=== PATIENT | female | born 1970 | race Caucasian/White ===

== ENCOUNTER 2017-02-16 07:44 | Emergency (ER) | payer BC ==
[2017-02-16 07:56] VITALS: BP 92/56
--- NOTE | 2017-02-16 08:30 | UC ---
Skin Complaint HPI - HPI Summary HPI Summary: Patient is an otherwise healthy 46yo presenting with diffuse hives x2 days. She began to double the dose of her spironolactone on . Thursday morning she awoke with erythematous raised pruritic areas to the left side of the face and neck. Thursday morning she awoke with swelling of the lips and right eye with more diffuse hives to the lower extremities and face. She denies soaps or detergent changes. She denies environmental changes or other allergies to foods. She has tried benadryl without relief. Denies visual disturbances, dysphagia, chest pain or SOB. - History of Current Complaint Chief Complaint: UCAllergicReaction Time Seen by Provider: 02/16/17 08:07 Stated Complaint: HIVES Hx Obtained From: Patient ?: No Onset/Duration: Gradual Onset Skin Exposure Onset/Duration: Days Ago Timing: Constant Onset Severity: Moderate Current Severity: Moderate Pain Intensity: 2 Pain Scale Used: 0-10 Numeric Location: Diffuse Character: Pruritus, Hives, Redness, Raised Aggravating: Nothing Alleviating: Nothing Associated Signs & Symptoms: Positive: Negative - Allergy/Home Medications Allergies/Adverse Reactions: Allergies Allergy/AdvReac Type Severity Reaction Status Date / Time No Known Allergies Allergy Verified 12/24/12 18:58 Home Medications: Home Medications Spironolactone TAB* [Aldactone TAB*] 25 mg PO DAILY 02/16/17 [History Confirmed 02/16/17] Review of Systems Constitutional: Negative Skin: Rash Eyes: Negative Respiratory: Negative Cardiovascular: Negative Neurovascular: Negative Musculoskeletal: Negative Neurological: Negative Psychological: Negative All Other Systems Reviewed And Are Negative: Yes PMH/Surg Hx/FS Hx/Imm Hx - Surgical History Surgical History: Yes Surgery Procedure, Year, and Place: - Social History Alcohol Use: None Substance Use Type: None Smoking Status (MU): Never Smoked Tobacco Physical Exam Triage Information Reviewed: Yes Appearance: Well-Appearing, No Pain Distress Vital Signs: Initial Vital Signs Temp 99.2 F 02/16/17 07:52 Pulse 98 02/16/17 07:52 Resp 18 02/16/17 07:52 BP 92/56 02/16/17 07:52 Pulse Ox 100 02/16/17 07:52 Vital Signs Reviewed: Yes Eye Exam: Normal ENT Exam: Normal ENT: Positive: Pharynx normal Dental Exam: Normal Neck exam: Normal Neck: Positive: Supple, No Lymphadenopathy Respiratory Exam: Normal Respiratory: Positive: Chest non-tender Cardiovascular Exam: Normal Cardiovascular: Positive: RRR Neurological Exam: Normal Neurological: Positive: Muscle Tone Normal Psychological: Positive: Normal Response To Family, Age Appropriate Behavior Skin: Positive: rashes - diffuse hives Course/Dx - Course Course Of Treatment: Patient presents to with diffuse hives after increasing the dose of spironolactone. She is advised to discontinue the medication and rx for atarax, prednisone, and triamcinalone. She is to follow up with dermatology pablo. - Differential Diagnoses - Skin Complaint Differential Diagnoses: Drug Rash, Drug Intoxication - Diagnoses Provider Diagnoses: Urticaria Discharge - Discharge Plan Condition: Stable Disposition: HOME Prescriptions: Triamcinolone 0.5% CREAM(NF) [Triamcinolone 0.5% CREAM*] 1 applic TOPICAL TID # 1 tube hydrOXYzine HCL TAB* [Atarax TAB 50 MG *] 50 mg PO TID PRN #15 tab PRN Reason: Itching predniSONE TAB* [Deltasone TAB*] 50 mg PO DAILY #5 tab MDD 1 Patient Education Materials: Prednisone (By mouth), Urticaria (ED) Referrals: Mert Nicholson MD [Primary Care Provider] - Additional Instructions: FOLLOW UP WITH YOUR DEVELOPMENTAL BEHAVIORAL PHYSICIAN SOON POSSIBLE USE THE MEDICATIONS PRESCRIBED TO YOU. TAKE THE PREDNISONE IN THE MORNING TAKE HYDROXYZINE UP TO THREE TIMES DAILY FOR ITCHING DISCONTINUE THE USE OF SPIRONOLACTONE TRIMACINALONE CREAM TOPICALLY ONLY TO THE AREAS WHICH ARE ITCHING. RETURN IF SYMPTOMS BECOME WORSE OR YOU DEVELOP DIFFICULTY BREATHING.
== END 2017-02-16 08:48 | disposition home or self-care (01) ==
LOC: UCEAST 07:44
DX: L50.9 Urticaria, unspecified (principal)
CPT/HCPCS: 99212; G0463

== ENCOUNTER 2019-03-18 15:05 | Emergency (ER) | payer BC ==
--- OUTSIDE RECORDS SUMMARY | 2019-03-18 15:11 | XMS REPORT | Continuity of Care Document ---
:1970 External Reference #:[id number] Author Name Telly Pate M.D. Address [address] [place] [address] Care Team Providers Name Role Phone Brice Rutledge M.D. Care Team Information Sales Operations Director Unavailable [facility] Primary Care Physician Unavailable Payers Date Identification Numbers Payment Provider Subscriber Effective: Policy Number: [id number] [facility] Zeus Sanchez 2015 Group Number: [id number] [address] Group Name: [place] [address] PayID: [id number] Effective: 2000 Policy Number: [id number] [facility] Mook Sanchez Expires: 2012 PayID: [id number] [address] [facility] [employer] [place] [address] Effective: 2012 Policy Number: [id number] [facility] Zeus Sanchez Expires: 2015 Group Number: [id number] [address] PayID: [id number] [place] [address] Problems Active Problems Provider Date Contact dermatitis Telly Pate M.D. Onset: 01/28/2019 Social History Type Date Description Comments Sex Unknown Tobacco Use Start: Unknown Patient has never smoked Allergies, Adverse Reactions, Alerts Description No Known Drug Allergies Medications Active Medications SIG Qnty Indications Ordering Provider Date Clarinex Jes, 5mg Tablets Sharan Nolan Spironolactone Take One Tablet Unknown 25mg Tablets By Mouth Every Day Medications Administered in Office Medication SIG Qnty Indications Ordering Provider Date Injection Allergy Injection 02/14/2019 Injection Injection Allergy Injection 01/17/2019 Injection Injection Allergy Injection 12/20/2018 Injection Injection Allergy Injection 11/22/2018 Injection Injection Allergy Injection 10/25/2018 Injection Injection Allergy Injection 09/20/2018 Injection Injection Allergy Injection 09/13/2018 Injection Injection Allergy Injection 08/09/2018 Injection Injection Allergy Injection 07/26/2018 Injection Injection Allergy Injection 06/28/2018 Injection Injection Allergy Injection 05/31/2018 Injection Injection Allergy Injection 05/03/2018 Injection Injection Allergy Injection 04/05/2018 Injection Injection Allergy Injection 03/08/2018 Injection Injection Allergy Injection 02/08/2018 Injection Injection Telly Pate M.D. 02/03/2018 Injection Injection Allergy Injection 02/03/2018 Injection Injection Telly Pate M.D. 01/25/2018 Injection Injection Allergy Injection 01/25/2018 Injection Injection Allergy Injection 12/28/2017 Injection Injection Allergy Injection 11/23/2017 Injection Injection Allergy Injection 10/26/2017 Injection Injection Allergy Injection 09/28/2017 Injection Injection Allergy Injection 09/02/2017 Injection Injection Allergy Injection 08/03/2017 Injection Injection Allergy Injection 07/06/2017 Injection Injection Allergy Injection 06/22/2017 Injection Injection Allergy Injection 06/08/2017 Injection Injection Allergy Injection 05/25/2017 Injection Injection Allergy Injection 05/04/2017 Injection Injection Allergy Injection 04/27/2017 Injection Injection Allergy Injection 04/13/2017 Injection Injection Allergy Injection 03/23/2017 Injection Injection Allergy Injection 02/09/2017 Injection Injection Allergy Injection 01/26/2017 Injection Injection Allergy Injection 12/29/2016 Injection Injection Telly Pate M.D. 12/22/2016 Injection Injection Allergy Injection 12/22/2016 Injection Injection Allergy Injection 12/01/2016 Injection Injection Allergy Injection 11/10/2016 Injection Injection Allergy Injection 10/15/2016 Injection Injection Allergy Injection 09/22/2016 Injection Injection Allergy Injection 08/04/2016 Injection Injection Allergy Injection 06/30/2016 Injection Injection Allergy Injection 06/02/2016 Injection Injection Allergy Injection 05/19/2016 Injection Injection Allergy Injection 04/28/2016 Injection Injection Allergy Injection 04/14/2016 Injection Injection Allergy Injection 03/17/2016 Injection Injection Allergy Injection 02/25/2016 Injection Injection Allergy Injection 02/11/2016 Injection Injection Allergy Injection 01/21/2016 Injection Injection Allergy Injection 01/07/2016 Injection Injection Allergy Injection 12/24/2015 Injection Injection Allergy Injection 12/10/2015 Injection Injection Allergy Injection 11/12/2015 Injection Injection Allergy Injection 10/15/2015 Injection Injection Allergy Injection 09/17/2015 Injection Injection Allergy Injection 08/20/2015 Injection Injection Allergy Injection 07/23/2015 Injection Injection Allergy Injection 07/02/2015 Injection Injection Allergy Injection 06/11/2015 Injection Injection Allergy Injection 05/21/2015 Injection Injection Allergy Injection 05/07/2015 Injection Injection Allergy Injection 04/23/2015 Injection Injection Allergy Injection 04/09/2015 Injection Injection Allergy Injection 03/26/2015 Injection Injection Allergy Injection 03/12/2015 Injection Injection Allergy Injection 02/26/2015 Injection Injection Allergy Injection 02/12/2015 Injection Injection Allergy Injection 01/22/2015 Injection Injection Allergy Injection 01/08/2015 Injection Injection Allergy Injection 12/25/2014 Injection Injection Allergy Injection 12/11/2014 Injection Injection Allergy Injection 11/13/2014 Injection Injection Allergy Injection 10/16/2014 Injection Injection Allergy Injection 09/18/2014 Injection Injection Allergy Injection 08/21/2014 Injection Injection Allergy Injection 07/24/2014 Injection Injection Allergy Injection 06/26/2014 Injection Injection Allergy Injection 06/12/2014 Injection Injection Allergy Injection 05/15/2014 Injection Injection Allergy Injection 04/24/2014 Injection Injection Allergy Injection 04/03/2014 Injection Injection Allergy Injection 03/13/2014 Injection Injection Allergy Injection 02/20/2014 Injection Injection Allergy Injection 02/06/2014 Injection Injection Allergy Injection 12/19/2013 Injection Injection Allergy Injection 11/28/2013 Injection Injection Allergy Injection 10/31/2013 Injection Injection Allergy Injection 10/03/2013 Injection Injection Allergy Injection 09/05/2013 Injection Injection Allergy Injection 08/08/2013 Injection Injection Allergy Injection 07/25/2013 Injection Injection Allergy Injection 06/27/2013 Injection Injection Allergy Injection 06/13/2013 Injection Injection Allergy Injection 05/30/2013 Injection Injection Allergy Injection 05/16/2013 Injection Injection Allergy Injection 05/02/2013 Injection Injection Allergy Injection 04/18/2013 Injection Injection Allergy Injection 03/21/2013 Injection Injection Allergy Injection 03/07/2013 Injection Injection Allergy Injection 02/07/2013 Injection Injection Allergy Injection 01/17/2013 Injection Injection Allergy Injection 01/03/2013 Injection Injection Allergy Injection 12/20/2012 Injection Injection Allergy Injection 12/06/2012 Injection Injection Ovidio Andre M.D. 11/08/2012 Injection Injection Ovidio Jes, M.DTony 11/01/2012 Injection Injection Ovidio Jes, M.DTony 09/20/2012 Injection Injection Ovidio Jes, M.D. 08/16/2012 Injection Injection Ovidio Jes, M.D. 07/05/2012 Injection Injection Ovidio Jes, M.D. 06/21/2012 Injection Injection Ovidio Jes, M.D. 06/07/2012 Injection Injection Ovidio Jes, M.DTony 05/17/2012 Injection Injection Ovidio Jes, M.DTony 04/26/2012 Injection Injection Ovidio Jes, M.DTony 04/12/2012 Injection Injection Ovidio Jes, M.DTony 03/29/2012 Injection Injection Ovidio Jes, M.DTony 03/15/2012 Injection Injection Ovidio Jes, M.DTony 03/08/2012 Injection Injection Ovidio Jes, M.DTony 02/16/2012 Injection Injection Ovidio Jes, M.DTony 01/26/2012 Injection Injection Ovidio Jes, M.DTony 01/19/2012 Injection Injection Ovidio Jes, M.DTony 01/05/2012 Injection Injection Ovidio Jes, M.DTony 12/22/2011 Injection Injection Ovidio Jes, M.DTony 12/08/2011 Injection Injection Ovidio Jes, M.DTony 11/24/2011 Injection Injection Ovidio Jes, M.DTony 10/27/2011 Injection Injection Terri Steinberg M.D. 10/03/2011 Injection Injection Ovidio Jes, M.DTony 09/05/2011 Injection Injection Ovidio Jes, M.DTony 07/11/2011 Injection Injection Ovidio Jes, M.DTony 06/06/2011 Injection Injection Ovidio Jes, M.DTony 05/09/2011 Injection Injection Ovidio Jes, M.DTony 04/11/2011 Injection Injection CONTRERAS Best 02/21/2011 Injection Injection Ovidio Jes, MTonyDTony 01/24/2011 Injection Injection Ovidio Jes, M.DTony 01/03/2011 Injection Injection Rodolfo Simons M.D. 12/13/2010 Injection Injection Rodolfo Simons M.D. 11/15/2010 Injection Injection Rodolfo Simons M.D. 10/11/2010 Injection Injection Rodolfo Simons M.D. 09/20/2010 Injection Injection Rodolfo Simons M.D. 08/16/2010 Injection Injection Rodolfo Simons M.D. 07/26/2010 Injection Injection Rodolfo Simons M.D. 06/28/2010 Injection Injection Rodolfo Simosn M.D. 06/14/2010 Injection Injection Rodolfo Simons M.D. 05/31/2010 Injection Injection Rodolfo Simons M.D. 05/17/2010 Injection Injection Rodolfo Simons M.D. 05/03/2010 Injection Injection Rodolfo Simons M.D. 04/01/2010 Injection Injection Rodolfo Simons M.D. 03/01/2010 Injection Injection Rodolfo Simons M.D. 02/15/2010 Injection Injection Rodolfo Simons M.D. 01/18/2010 Injection Injection Rodolfo Simons M.D. 01/04/2010 Injection Injection Rodolfo Simons M.D. 12/14/2009 Injection Injection Rodolfo Simons M.D. 11/16/2009 Injection Injection Rodolfo Simons M.D. 10/19/2009 Injection Injection Rodolfo Simons M.D. 09/21/2009 Injection Injection Rodolfo Simons M.D. 08/24/2009 Injection Injection Rodolfo Simons M.D. 07/13/2009 Injection Injection Rodolfo Simons M.D. 06/22/2009 Injection Injection Rodolfo Simons M.D. 06/08/2009 Injection Injection Rodolfo Simons M.D. 05/11/2009 Injection Injection Rodolfo Simons M.D. 04/27/2009 Injection Injection Rodolfo Simons M.D. 04/13/2009 Injection Injection Rodolfo Simons M.D. 03/21/2009 Injection Injection Rodolfo Simons M.D. 03/02/2009 Injection Injection Rodolfo Simons M.D. 02/16/2009 Injection Injection Rodolfo Simons M.D. 01/19/2009 Injection Injection Rodolfo Simnos M.D. 01/05/2009 Injection Injection Rodolfo Simons M.D. 12/22/2008 Injection Injection Rodolfo Simons M.D. 12/08/2008 Injection Injection Rodolfo Simons M.D. 11/17/2008 Injection Injection Rodolfo Simons M.D. 10/27/2008 Injection Injection Rodolfo Simons M.D. 09/22/2008 Injection Injection Rodolfo Simons M.D. 08/11/2008 Injection Injection Rodolfo Simons M.D. 07/07/2008 Injection Injection Rodolfo Simons M.D. 06/23/2008 Injection Injection Rodolfo Simons M.D. 06/09/2008 Injection Injection Rodolfo Simons M.D. 05/26/2008 Injection Injection Rodolfo Simons M.D. 05/12/2008 Injection Injection Rodolfo Simons M.D. 04/07/2008 Injection Injection Rodolfo Simons M.D. 03/24/2008 Injection Injection Rodolfo Simons M.D. 02/11/2008 Injection Injection Rodolfo Simons M.D. 01/28/2008 Injection Injection Rodolfo Simons M.D. 01/14/2008 Injection Injection Rodolfo Simons M.D. 12/31/2007 Injection Injection Rodolfo Simons M.D. 12/17/2007 Injection Injection Rodolfo Simons M.D. 12/03/2007 Injection Injection Rodolfo Simons M.D. 11/05/2007 Injection Injection Rodolfo Simons M.D. 10/08/2007 Injection Injection Rodolfo Simons M.D. 09/10/2007 Injection Injection Rodolfo Simons M.D. 08/06/2007 Injection Injection Rodolfo Simons M.D. 07/16/2007 Injection Injection Rodolfo Simons M.D. 06/18/2007 Injection Injection Rodolfo Simons M.D. 05/28/2007 Injection Injection Rodoflo Simons M.D. 05/14/2007 Injection Injection Rodolfo Simons M.D. 04/30/2007 Injection Injection Rodolfo Simons M.D. 04/16/2007 Injection Injection Rodolfo Simons M.D. 03/19/2007 Injection Injection Rodolfo Simons M.D. 03/05/2007 Injection Injection Rodolfo Simons M.D. 02/19/2007 Injection Injection Rodolfo Simons M.D. 02/05/2007 Injection Injection Rodolfo Simons M.D. 01/22/2007 Injection Injection Rodolfo Simons M.D. 01/08/2007 Injection Injection Rodolfo Simons M.D. 12/25/2006 Injection Injection Rodolfo Simons M.D. 12/09/2006 Injection Injection Rodolfo Simons M.D. 11/27/2006 Injection Injection Rodolfo Simons M.D. 10/30/2006 Injection Injection Rodolfo Simons M.D. 10/02/2006 Injection Injection Rodolfo Simons M.D. 08/28/2006 Injection Injection Rodolfo Simons M.D. 08/07/2006 Injection Injection Rodolfo Simons M.D. 07/24/2006 Injection Injection Rodolfo Simons M.D. 06/26/2006 Injection Injection Rodolfo Simons M.D. 06/12/2006 Injection Injection Rodolfo Simons M.D. 05/29/2006 Injection Injection Rodolfo Simons M.D. 05/15/2006 Injection Injection Rodolfo Simons M.D. 05/01/2006 Injection Injection Rodolfo Simons M.D. 04/17/2006 Injection Injection Rodolfo Simons M.D. 04/03/2006 Injection Injection Rodolfo Simons M.D. 03/13/2006 Injection Injection Rodolfo Simons M.D. 02/20/2006 Injection Injection Rodolfo Simons M.D. 02/06/2006 Injection Injection Rodolfo Simons M.D. 01/23/2006 Injection Injection Rodolfo Simons M.D. 12/26/2005 Injection Injection Rodolfo Simons M.D. 11/28/2005 Injection Injection Rodolfo Simons M.D. 11/14/2005 Injection Injection Rodolfo Simons M.D. 10/31/2005 Injection Injection Rodolfo Simons M.D. 10/24/2005 Injection Injection Rodolfo Simons M.D. 10/17/2005 Injection Injection Rodolfo Simons M.D. 09/19/2005 Injection Injection Rodolfo Simons M.D. 08/22/2005 Injection Injection Rodolfo Simons M.D. 08/08/2005 Injection Injection Rodolfo Simons M.D. 07/25/2005 Injection Injection Rodolfo Simons M.D. 07/11/2005 Injection Injection Rodolfo Simons M.D. 06/13/2005 Injection Injection Rodolfo Simons M.D. 05/23/2005 Injection Injection Rodolfo Simons M.D. 05/02/2005 Injection Injection Rodolfo Simons M.D. 04/04/2005 Injection Injection Rodolfo Simons M.D. 03/07/2005 Injection Injection Rodolfo Simons M.D. 02/14/2005 Injection Injection Rodolfo Simons M.D. 01/24/2005 Injection Injection Rodolfo Simons M.D. 12/27/2004 Injection Injection Rodolfo Simons M.D. 12/06/2004 Injection Injection Rodolfo Simons M.D. 11/08/2004 Injection Injection Rodolfo Simons M.D. 10/11/2004 Injection Injection Rodolfo Simons M.D. 09/13/2004 Injection Injection Rodolfo Simons M.D. 09/02/2004 Injection Injection Rodolfo Simons M.D. 08/16/2004 Injection Injection Rodolfo Simons M.D. 08/09/2004 Injection Injection Rodolfo Simons M.D. 07/15/2004 Injection Injection Rodolfo Simons M.D. 05/24/2004 Injection Injection Rodolfo Simons M.D. 05/06/2004 Injection Injection Rodolfo Simons M.D. 04/22/2004 Injection Injection Rodolfo Simons M.D. 03/20/2004 Injection Injection Rodolfo Simons M.D. 02/21/2004 Injection Injection Rodolfo Simons M.D. 02/07/2004 Injection Injection Rodlofo Simons M.D. 01/24/2004 Injection Injection Rodolfo Simons M.D. 01/10/2004 Injection Injection Rodolfo Simons M.D. 12/27/2003 Injection Injection Rodolfo Simons M.D. 11/29/2003 Injection Injection Rodolfo Simons M.D. 11/01/2003 Injection Injection Rodolfo Simons M.D. 09/25/2003 Injection Injection Rodolfo Simons M.D. 08/28/2003 Injection Injection Rodolfo Simons M.D. 08/02/2003 Injection Injection Rodolfo Simons M.D. 07/05/2003 Injection Injection Rodolfo Simons M.D. 06/21/2003 Injection Injection Rodolfo Simons M.D. 06/05/2003 Injection Injection Rodolfo Simons M.D. 05/17/2003 Injection Injection Rodolfo Simons M.D. 05/03/2003 Injection Injection Rodolfo Simons M.D. 04/12/2003 Injection Injection Rodolfo Simons M.D. 03/29/2003 Injection Vital Signs Date Vital Result Comment 02/21/2019 5:03pm Height 61 inches 5'1" Weight 119.00 lb Weight 53.978 kg Respiratory Rate 18 /min Heart Rate 75 /min O2 % BldC Oximetry 98 % BP Systolic 125 mmHg BP Diastolic 80 mmHg BMI (Body Mass Index) 22.5 kg/m2 01/28/2019 8:55am Height 61 inches 5'1" Weight 119.00 lb Weight 53.978 kg Respiratory Rate 20 /min Heart Rate 103 /min O2 % BldC Oximetry 97 % BP Systolic 107 mmHg BP Diastolic 79 mmHg BMI (Body Mass Index) 22.5 kg/m2 03/21/2013 4:47pm Height 61 inches 5'1" Weight 130.00 lb Weight 58.968 kg Respiratory Rate 16 /min Heart Rate 74 /min O2 % BldC Oximetry 98 % BP Systolic 118 mmHg BP Diastolic 78 mmHg BMI (Body Mass Index) 24.6 kg/m2 Procedures Date Code Description Status 02/14/2019 72017 Injection Completed 01/17/2019 80057 Injection Completed 12/20/2018 42953 Injection Completed 11/22/2018 34307 Injection Completed 10/25/2018 98985 Injection Completed 09/20/2018 09710 Extract 1-10 Completed 09/20/2018 10056 Injection Completed 09/13/2018 74529 Injection Completed 08/09/2018 78933 Injection Completed 07/26/2018 03013 Injection Completed 06/28/2018 35297 Injection Completed 05/31/2018 57826 Injection Completed 05/03/2018 72292 Injection Completed 04/05/2018 27823 Injection Completed 03/08/2018 69540 Injection Completed 02/08/2018 31604 Injection Completed 02/03/2018 35581 Injection Completed 02/03/2018 94474 Injection Completed 02/03/2018 74374 Extract 1-10 Completed 01/25/2018 62376 Injection Completed 01/25/2018 10303 Injection Completed 12/28/2017 74666 Injection Completed 11/23/2017 48703 Injection Completed 10/26/2017 43414 Injection Completed 09/28/2017 29764 Injection Completed 09/02/2017 96189 Injection Completed 08/03/2017 06543 Injection Completed 07/06/2017 71871 Injection Completed 06/22/2017 77231 Injection Completed 06/08/2017 32155 Extract 1-10 Completed 06/08/2017 43926 Injection Completed 05/25/2017 07344 Injection Completed 05/04/2017 15792 Injection Completed 04/27/2017 06136 Injection Completed 04/13/2017 62485 Injection Completed 03/23/2017 79257 Injection Completed 02/09/2017 00772 Injection Completed 01/26/2017 17545 Injection Completed 12/29/2016 70584 Injection Completed 12/22/2016 02304 Injection Completed 12/22/2016 05986 Injection Completed 12/01/2016 31392 Extract 1-10 Completed 12/01/2016 53587 Injection Completed 11/10/2016 06899 Injection Completed 10/15/2016 42310 Injection Completed 09/22/2016 11480 Injection Completed 08/04/2016 75217 Injection Completed 06/30/2016 75500 Injection Completed 06/02/2016 42918 Injection Completed 05/19/2016 00092 Injection Completed 04/28/2016 50571 Injection Completed 04/14/2016 92185 Injection Completed 03/17/2016 66134 Extract 1-10 Completed 03/17/2016 61386 Injection Completed 02/25/2016 84432 Injection Completed 02/11/2016 43592 Injection Completed 01/21/2016 05530 Injection Completed 01/07/2016 60365 Injection Completed 12/24/2015 87264 Injection Completed 12/10/2015 40960 Injection Completed 11/12/2015 87128 Injection Completed 10/15/2015 17362 Injection Completed 09/17/2015 68277 Injection Completed 08/20/2015 60457 Extract 1-10 Completed 08/20/2015 56791 Injection Completed 07/23/2015 09299 Injection Completed 07/02/2015 78124 Injection Completed 06/11/2015 27530 Injection Completed 05/21/2015 20798 Injection Completed 05/07/2015 64958 Injection Completed 04/23/2015 61971 Injection Completed 04/09/2015 96800 Injection Completed 03/26/2015 70323 Injection Completed 03/12/2015 76565 Injection Completed 02/26/2015 38992 Injection Completed 02/26/2015 65943 Extract 1-10 Completed 02/12/2015 61862 Injection Completed 01/22/2015 20460 Injection Completed 01/08/2015 47044 Injection Completed 12/25/2014 17549 Injection Completed 12/11/2014 39525 Injection Completed 11/13/2014 95387 Injection Completed 10/16/2014 34574 Injection Completed 09/18/2014 46645 Injection Completed 08/21/2014 96435 Injection Completed 07/24/2014 29725 Extract 1-10 Completed 07/24/2014 49157 Injection Completed 06/26/2014 56555 Injection Completed 06/12/2014 51446 Injection Completed 05/15/2014 24144 Injection Completed 04/24/2014 03041 Injection Completed 04/03/2014 83983 Injection Completed 03/13/2014 25509 Injection Completed 02/20/2014 09518 Injection Completed 02/06/2014 04170 Injection Completed 12/19/2013 48864 Injection Completed 11/28/2013 20720 Extract 1-10 Completed 11/28/2013 78587 Injection Completed 10/31/2013 28193 Injection Completed 10/03/2013 65786 Injection Completed 09/05/2013 48299 Injection Completed 08/08/2013 04895 Injection Completed 07/25/2013 29008 Injection Completed 06/27/2013 66250 Injection Completed 06/13/2013 71401 Injection Completed 05/30/2013 99996 Injection Completed 05/16/2013 88029 Injection Completed 05/02/2013 45603 Extract 1-10 Completed 05/02/2013 24024 Injection Completed 04/18/2013 70706 Injection Completed 03/21/2013 37865 Injection Completed 03/07/2013 91909 Injection Completed 02/07/2013 33931 Injection Completed 01/17/2013 09435 Injection Completed 01/03/2013 05538 Injection Completed 12/20/2012 27886 Injection Completed 12/06/2012 09791 Injection Completed 11/08/2012 26925 Injection Completed 11/01/2012 15392 Extract 1-10 Completed 11/01/2012 06586 Injection Completed 09/20/2012 61579 Injection Completed 08/16/2012 08296 Injection Completed 07/05/2012 21593 Injection Completed 06/21/2012 44346 Injection Completed 06/07/2012 06449 Injection Completed 05/17/2012 51834 Injection Completed 04/26/2012 74429 Injection Completed 04/12/2012 70431 Injection Completed 03/29/2012 45213 Injection Completed 03/15/2012 42465 Injection Completed 03/15/2012 58595 Extract 1-10 Completed 03/08/2012 77194 Injection Completed 02/16/2012 39695 Injection Completed 01/26/2012 16712 Injection Completed 01/19/2012 63542 Injection Completed 01/05/2012 86661 Injection Completed 12/22/2011 00929 Injection Completed 12/08/2011 81045 Injection Completed 11/24/2011 65234 Injection Completed 10/27/2011 89752 Injection Completed 10/15/2011 09220 Extract 1-10 Completed 10/03/2011 01749 Injection Completed 09/05/2011 55539 Injection Completed 07/11/2011 95146 Injection Completed 06/06/2011 62132 Injection Completed 05/09/2011 57906 Injection Completed 04/11/2011 92661 Injection Completed 02/21/2011 21627 Injection Completed 01/24/2011 32603 Injection Completed 01/03/2011 81970 Injection Completed 12/13/2010 37727 Injection Completed 12/09/2010 53093 Extract 1-10 Completed 11/15/2010 87829 Injection Completed 10/11/2010 29430 Injection Completed 09/20/2010 49560 Injection Completed 08/16/2010 60028 Injection Completed 07/26/2010 71306 Injection Completed 06/28/2010 93345 Injection Completed 06/14/2010 73773 Injection Completed 05/31/2010 07631 Injection Completed 05/17/2010 73324 Injection Completed 05/03/2010 18140 Injection Completed 04/10/2010 51718 Extract 1-10 Completed 04/01/2010 00973 Injection Completed 03/01/2010 06090 Injection Completed 02/15/2010 27405 Injection Completed 01/18/2010 34600 Injection Completed 01/04/2010 33229 Injection Completed 12/14/2009 54011 Injection Completed 11/16/2009 53531 Injection Completed 10/19/2009 79310 Injection Completed 09/21/2009 65233 Injection Completed 08/24/2009 76901 Injection Completed 07/16/2009 51996 Extract 1-10 Completed 07/13/2009 63802 Injection Completed 06/22/2009 38468 Pulmonary Function Test Completed 06/22/2009 44916 Injection Completed 06/08/2009 44069 Injection Completed 05/11/2009 12722 Injection Completed 04/27/2009 40793 Injection Completed 04/13/2009 78844 Injection Completed 03/21/2009 34730 Injection Completed 03/02/2009 44288 Injection Completed 02/16/2009 72549 Injection Completed 01/19/2009 96983 Injection Completed 01/15/2009 04083 Extract 1-10 Completed 01/05/2009 17961 Injection Completed 12/22/2008 86805 Injection Completed 12/08/2008 46837 Injection Completed 11/17/2008 79186 Injection Completed 10/27/2008 06547 Injection Completed 09/22/2008 28695 Injection Completed 08/11/2008 18798 Injection Completed 07/07/2008 68687 Injection Completed 06/23/2008 73464 Injection Completed 06/09/2008 38886 Injection Completed 05/29/2008 49445 Extract 1-10 Completed 05/26/2008 41994 Injection Completed 05/12/2008 18936 Injection Completed 04/07/2008 83390 Injection Completed 03/24/2008 54528 Injection Completed 02/11/2008 52853 Injection Completed 01/28/2008 57379 Injection Completed 01/14/2008 52375 Injection Completed 12/31/2007 76597 Injection Completed 12/17/2007 76242 Injection Completed 12/03/2007 19695 Injection Completed 11/29/2007 62235 Extract 1-10 Completed 11/05/2007 24434 Injection Completed 10/08/2007 98320 Injection Completed 09/10/2007 47150 Injection Completed 08/06/2007 94304 Injection Completed 07/16/2007 93745 Injection Completed 06/18/2007 28723 Injection Completed 05/28/2007 55321 Injection Completed 05/14/2007 01770 Injection Completed 04/30/2007 43110 Injection Completed 04/16/2007 64747 Injection Completed 03/29/2007 31011 Extract 1-10 Completed 03/19/2007 36331 Injection Completed 03/05/2007 60508 Injection Completed 02/19/2007 52787 Injection Completed 02/05/2007 73080 Injection Completed 01/22/2007 35172 Injection Completed 01/08/2007 48295 Injection Completed 12/25/2006 07521 Injection Completed 12/09/2006 06644 Injection Completed 11/27/2006 15994 Injection Completed 10/30/2006 37207 Injection Completed 10/26/2006 70872 Extract 1-10 Completed 10/02/2006 22363 Injection Completed 08/28/2006 66522 Injection Completed 08/07/2006 53278 Injection Completed 07/24/2006 67236 Injection Completed 06/26/2006 91108 Injection Completed 06/12/2006 67285 Injection Completed 05/29/2006 12731 Injection Completed 05/15/2006 23448 Injection Completed 05/01/2006 29482 Injection Completed 04/17/2006 81064 Injection Completed 04/13/2006 60977 Extract 1-10 Completed 04/03/2006 15669 Injection Completed 03/13/2006 49288 Injection Completed 02/20/2006 55235 Injection Completed 02/06/2006 36613 Injection Completed 01/23/2006 60927 Injection Completed 12/26/2005 47582 Injection Completed 11/28/2005 35567 Injection Completed 11/14/2005 91827 Injection Completed 10/31/2005 15217 Injection Completed 10/24/2005 47669 Injection Completed 10/20/2005 05226 Extract 1-10 Completed 10/17/2005 30564 Injection Completed 09/19/2005 49050 Injection Completed 08/22/2005 97926 Injection Completed 08/08/2005 58126 Injection Completed 07/25/2005 82238 Injection Completed 07/11/2005 92261 Injection Completed 06/13/2005 90196 Injection Completed 05/23/2005 80720 Injection Completed 05/02/2005 39881 Injection Completed 04/04/2005 72406 Injection Completed 03/17/2005 11154 Extract 1-10 Completed 03/07/2005 23116 Injection Completed 02/14/2005 97709 Injection Completed 01/24/2005 65975 Injection Completed 12/27/2004 11696 Injection Completed 12/06/2004 08937 Injection Completed 11/08/2004 65484 Injection Completed 10/11/2004 65631 Injection Completed 09/13/2004 73665 Injection Completed 09/02/2004 92206 Injection Completed 08/16/2004 16731 Extract 1-10 Completed 08/16/2004 09699 Injection Completed 08/09/2004 48750 Injection Completed 07/15/2004 61667 Injection Completed 05/24/2004 71365 Injection Completed 05/06/2004 98925 Injection Completed 04/22/2004 47722 Injection Completed 03/20/2004 93432 Injection Completed 02/21/2004 48709 Injection Completed 02/07/2004 62876 Injection Completed 01/24/2004 04725 Injection Completed 01/10/2004 53186 Injection Completed 01/05/2004 77076 Extract 1-10 Completed 12/27/2003 10824 Injection Completed 11/29/2003 47304 Injection Completed 11/01/2003 00678 Injection Completed 09/25/2003 82259 Injection Completed 08/28/2003 52288 Injection Completed 08/02/2003 44422 Injection Completed 07/05/2003 11094 Injection Completed 06/21/2003 91003 Injection Completed 06/05/2003 47648 Injection Completed 05/17/2003 51928 Injection Completed 05/12/2003 86769 Extract 1-10 Completed 05/03/2003 04667 Injection Completed 04/12/2003 47753 Injection Completed 03/29/2003 81117 Injection Completed Encounters Type Date Location Provider Dx Diagnosis Office Visit 02/21/2019 Kenneth Pate M.D. L30.9 Dermatitis, 4:40p unspecified Office Visit 01/28/2019 Kenneth Pate M.D. L30.9 Dermatitis, 9:20a unspecified Office Visit 03/21/2013 Kenneth Kevin, 477.8 Rhinitis Allergic Due 4:40p [employer]-C To Other Allergen 477.0 Rhinitis Allergic Due To Pollen Office Visit 2004 9:15a [place] Ovidio Andre, 477.0 Rhinitis Allergic M.D. Due To Pollen 477.8 Rhinitis Allergic Due To Other Allergen Plan of Treatment Future Appointment(s):05/30/2019 5:00 pm - Telly Pate M.D. 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
[2019-03-18 15:35] VITALS: BP 124/78
--- NOTE | 2019-03-18 16:02 | UC ---
Complaint Female HPI - HPI Summary HPI Summary: 48-year-old female who states over the past months she's been feeling more bloated in her lower abdomen. She had an ablation done in the past and states that she had a transvaginal sonogram done 10 days ago and everything was normal. She states today she had some drops of blood when she urinated and she did have some burning on urination. - History Of Current Complaint Chief Complaint: UCGU Stated Complaint: BLOOD IN URINE Time Seen by Provider: 03/18/19 15:46 Hx Obtained From: Patient ?: No Onset/Duration: Sudden Onset, Other - Patient states she only had 2 drops of blood when she urinated today. Timing: Intermittent Severity Initially: Mild Severity Currently: None Pain Intensity: 5 Character: Burning Aggravating Factor(s): Urination, Other - Occasional burning on urination. Associated Signs And Symptoms: Positive: Vaginal Bleeding/Discharge - Patient was not sure if she had vaginal bleeding or if this was from her urine but because she had burning on urination, she thought she might have urinary tract infection. - Allergies/Home Medications Allergies/Adverse Reactions: Allergies Allergy/AdvReac Type Severity Reaction Status Date / Time No Known Allergies Allergy Verified 03/18/19 15:35 PMH/Surg Hx/FS Hx/Imm Hx Previously Healthy: Yes - Surgical History Surgical History: Yes Surgery Procedure, Year, and Place: . ablation 01/2018 - Family History Known Family History: Positive: Non-Contributory - Social History Lives: With Family Alcohol Use: None Substance Use Type: None Smoking Status (MU): Never Smoked Tobacco Review of Systems All Other Systems Reviewed And Are Negative: Yes Genitourinary: Positive: Dysuria, Abnormal Bleeding - Patient states she had 2 drops of blood when she urinated today and she thought it was from her urine but she wasn't sure if it was vaginal. Patient states that 10 days ago she had a transvaginal sonogram to check the pelvic area and states everything was normal. Is Patient Immunocompromised?: No Physical Exam Triage Information Reviewed: Yes Appearance: Well-Appearing, No Pain Distress, Well-Nourished Vital Signs: Initial Vital Signs Temp 99.7 F 03/18/19 15:28 Pulse 70 03/18/19 15:28 Resp 12 03/18/19 15:28 BP 124/78 03/18/19 15:28 Pulse Ox 100 03/18/19 15:28 Vital Signs Reviewed: Yes Eyes: Positive: Conjunctiva Clear Neck: Positive: Supple, Nontender, No Lymphadenopathy Respiratory: Positive: Lungs clear, Normal breath sounds, No respiratory distress, No accessory muscle use Cardiovascular: Positive: RRR, No Murmur, Pulses Normal, Brisk Capillary Refill Abdomen Description: Positive: Nontender, No Organomegaly, Soft. Negative: CVA Tenderness (R), CVA Tenderness (L), Distended, Guarding - Patient states she has no specific point tenderness however just a very gassy feeling in her lower abdomen. Bowel Sounds: Positive: Present Pelvic Exam: Positive: Other - Patient refused a pelvic exam she stated she would rather follow up with her [employer] physician pending the urine culture today. Musculoskeletal Exam: Normal Neurological Exam: Normal Psychological Exam: Normal Skin Exam: Normal Complaint Female Dx - Course Course Of Treatment: Patient is comfortable here and in no distress she's had no further bleeding or spotting. She would prefer to follow-up with her [employer] physician pending the urine culture today. The urinalysis itself was negative. She was advised if she has any worsening of abdominal pain or any increasing bleeding she is to go to the emergency room. - Differential Dx/Diagnosis Provider Diagnosis: Dysuria Discharge - Sign-Out/Discharge Documenting (check all that apply): Patient Departure All imaging exams completed and their final reports reviewed: No Studies - Discharge Plan Condition: Fair Disposition: HOME Patient Education Materials: Dysuria (ED) Referrals: Mert Nicholson MD [Primary Care Provider] - Additional Instructions: Definite follow-up with your [employer] physician for further care. If you develop any worsening abdominal pain, fever, chills, vomiting then go to the emergency room for further treatment. - Billing Disposition and Condition Condition: FAIR Disposition: Home
== END 2019-03-18 16:08 | disposition home or self-care (01) ==
LOC: UCEAST 15:05
DX: R30.0 Dysuria (principal); R10.30 Lower abdominal pain, unspecified
CPT/HCPCS: 81003; 87086; 99211; G0463